=== PATIENT | male | born 1965 | race Caucasian/White ===

== ENCOUNTER → 2017-01-11 | Day surgery (SDC) | payer OTHER ==
[~2017-01-11] MED LIST: ALLO100; BUPIVACAINE/EPINEPHRINE 0.25% PF 10 ML VIAL ONE; CYCL5TAB PO; LACTATED RINGER'S 1000 ML INJ 1,000 ML ONE; LORT5TAB PO; MIDAZOLAM HCL 2 MG/2 ML VIAL ONE; SERT50 PO; ceFAZolin 2 GM PREMIX 50 ML ONE
== END | disposition home or self-care (01) ==
LOC: ESDC 07:40
PROVIDERS: ATTEND Surgery Trauma Surgery
DX: K40.90 Unilateral inguinal hernia, without obstruction or gangrene, not specified as recurrent (principal); Z53.09 Procedure and treatment not carried out because of other contraindication; K57.92 Diverticulitis of intestine, part unspecified, without perforation or abscess without bleeding
CPT/HCPCS: 99211; G0463; J0690; J2250; J7120

== ENCOUNTER → 2017-03-08 | Day surgery (SDC) | payer OTHER ==
[~2017-03-08] MED LIST changes: +ACETAMINOPHEN/HYDROcodone 325 MG/5 MG TAB ONE; +BUPIVACAINE/EPINEPHRINE 0.25% 50 ML VIAL ONE; -BUPIVACAINE/EPINEPHRINE 0.25% PF 10 ML VIAL ONE; +KETOROLAC TROMETHAMINE 30 MG/ML (IVP) VIAL IV PUSH ONE; +MORPHINE SULFATE 4 MG/ML INJ ONE; +ONDANSETRON HCL 4 MG/2 ML VIAL IV PUSH ONE; +PROPOFOL 200 MG/20 ML AMP IV ONE
--- NOTE | 2017-03-08 12:31 | TN ---
cc: VERNA GRECO M.D. DATE OF SURGERY: 03/08/2017 PREOPERATIVE DIAGNOSIS Symptomatic right inguinal hernia. POSTOPERATIVE DIAGNOSIS 1. Symptomatic right inguinal hernia. 2. Direct right inguinal hernia. PROCEDURE PERFORMED Laparoscopic right inguinal hernia repair with mesh. SURGEON Verna Greco BATCH ATTENDANT RAHEEM López ANESTHESIA General LMA. COMPLICATIONS None. INDICATION FOR PROCEDURE Mr. Boothe is a very pleasant 51-year-old gentleman who developed a symptomatic right inguinal hernia. He was referred for evaluation. He was examined and found to have a right inguinal hernia with no evidence of a left inguinal hernia. He was offered laparoscopic or open repair. The patient selected laparoscopic. The risks and benefits of laparoscopic repair with mesh was discussed with him and he was agreeable. DETAILS OF PROCEDURE The patient was identified, brought to the operating room and placed supine on the operating table. After adequate general anesthesia was achieved with LMA, the anterior abdomen and groin and genitals were prepped and draped in a standard surgical fashion. The infraumbilical space was anesthetized with 0.25% Marcaine. An infraumbilical incision was made. Dissection was carried down to the anterior abdominal wall fascia. The anterior rectus fascia was then incised vertically off the midline. The rectus muscle was identified and retracted laterally. The preperitoneal space was entered with blunt finger dissection. A blunt dissecting balloon was inserted and insufflated with 30 pumps of air under direct vision. Next, the dissecting balloon was removed and the balloon trocar inserted. The preperitoneal space was insufflated to 11 mmHg using CO2 gas. Next, two 5 mm trocars were placed in the lower midline under direct vision. Attention was first directed medially where the pubic tubercle and Dirk's ligament were identified. Just lateral to this was an obvious direct defect. The direct defect was carefully dissected out and the hernia sac was inverted. Once we did this attention was directed to the cord structures. The cord structures were found exiting the internal ring. The peritoneum was seen to reflect back away from the cord structures before the internal ring indicating he did not have an indirect hernia. The peritoneum was dissected off the cord structures several centimeters to get away from the internal ring. A posterior window was then made behind the cord structures. A piece of polypropylene mesh was inserted with a slit cut for the cord structures. The mesh was then placed through the posterior window. The mesh was secured medially at Dirk's ligament and pubic tubercle and superior along the posterior abdominal wall fascia and the slit was re-approximated tightening the internal ring. Once we did this an onlay mesh was then placed over the first mesh in order to buttress the slit and reinforce the medial portion of the repair. The onlay mesh was secured medially and laterally. With this the direct defect was well-covered in all directions with generous overlap of mesh. 0.25% Marcaine was then injected into the operative field. The inferior border of the mesh was held down and the preperitoneal space was desufflated and the peritoneum was seen to roll up over the mesh, again with excellent coverage of the direct defect. All trocars were then removed under direct vision. The anterior rectus fascia was repaired with 0 Vicryl in a [id number] fashion. The skin was closed with 4-0 Vicryl. The patient tolerated the procedure well, was awakened and brought to Recovery in stable condition. Please note the presence of the IT ASSOCIATE senior it assistant was medically necessary due the complexity of the surgical procedure. She has extensive knowledge of my surgical technique. MD YINKA Villarreal/ALVIN /11:41 AM /12:14 PM MTDJeyson
== END | disposition home or self-care (01) ==
LOC: ESDC 08:56
PROVIDERS: ATTEND Surgery Trauma Surgery
DX: K40.90 Unilateral inguinal hernia, without obstruction or gangrene, not specified as recurrent (principal)
CPT/HCPCS: 00840; 49650; C1727; C1781; J0690; J1885; J2250; J2270; J2405; J3010; J7120